=== PATIENT | male | born 1980 ===

== ENCOUNTER 2016-08-26 20:00 | Emergency (ER) | payer OTHER ==
[2016-08-26 20:27] VITALS: BMI 21.9
[2016-08-26 20:31] VITALS: RESP 18; TEMP 99.7
[2016-08-26] MEDS ORDERED: Oxycodone/Acetaminophen 5/325 mg Tab PO STA (20:48)
--- NOTE | 2016-08-26 21:06 | ED PDOC ---
Arrival/HPI - General Chief Complaint: Medical Clearance Time Seen by Provider: 08/26/16 20:31 Historian: Patient - History of Present Illness Narrative History of Present Illness (Text): 08/26/16 20:45 Pedro Aguilar is a 35 year old male who presents to the ED complaining of left- sided facial swelling for the past 3 days. Patient notes swelling has increased in size over the past few days. Patient denies any dental pain,fever, chills, shortness of breath, nausea, vomiting, neck pain, headache, dizziness, or any other complaints. Time/Duration: < week (days) Symptom Onset: Gradual Symptom Course: Worsening Activities at Onset: Rest, Light Context: Home Past Medical History - Provider Review Nursing Documentation Reviewed: Yes - Infectious Disease Hx of Infectious Diseases: None - Psychiatric Hx Substance Use: No - Anesthesia Hx Anesthesia: No Family/Social History - Physician Review Nursing Documentation Reviewed: Yes Family/Social History: No Known Family HX Smoking Status: Former Smoker Hx Alcohol Use: Yes Frequency of alcohol use: Socially Hx Substance Use: No Allergies/Home Meds Allergies/Adverse Reactions: Allergies Poultry Allergy (Verified 08/26/16 20:27) RASH Review of Systems - Physician Review All systems were reviewed & negative as marked: Yes - Review of Systems Constitutional: Normal. absent: Fevers Eyes: Normal ENT: Other (+left sided facial swelling) Respiratory: Normal. absent: SOB, Cough Cardiovascular: Normal. absent: Chest Pain Gastrointestinal: Normal. absent: Abdominal Pain, Diarrhea, Nausea, Vomiting Genitourinary Male: Normal. absent: Dysuria, Frequency, Hematuria, Urinary Output Changes Musculoskeletal: Normal. absent: Back Pain, Neck Pain Skin: Normal. absent: Rash Neurological: Normal. absent: Headache, Dizziness Endocrine: Normal Hemo/Lymphatic: Normal Psychiatric: Normal Physical Exam Vital Signs Reviewed: Yes Vital Signs Temp Pulse Resp BP Pulse Ox 08/26/16 20:30 99.7 F H 94 H 18 112/75 97 Temperature: Afebrile Blood Pressure: Normal Pulse: Regular Respiratory Rate: Normal Appearance: Positive for: Well-Appearing, Non-Toxic, Comfortable Pain Distress: None Mental Status: Positive for: Alert and Oriented X 3 - Systems Exam Head: Present: Normocephalic, Swelling (Left sided facial swelling) Pupils: Present: PERRL Extroacular Muscles: Present: EOMI Conjunctiva: Present: Normal Ears: Present: Normal, NORMAL TM, Normal Canal Mouth: Present: Moist Mucous Membranes Pharnyx: Present: Normal. No: ERYTHEMA, EXUDATE, TONSILS ENLARGED, Peritonsilar Swelling, Uvular Deviation, Muffled/Hoarse Voice, Strider, Soft Palate/Uvular Edema Neck: Present: Normal Range of Motion Respiratory/Chest: Present: Clear to Auscultation, Good Air Exchange. No: Respiratory Distress, Accessory Muscle Use Cardiovascular: Present: Regular Rate and Rhythm, Normal S1, S2. No: Murmurs Abdomen: Present: Normal Bowel Sounds. No: Tenderness, Distention, Peritoneal Signs Neurological: Present: GCS=15, CN II-XII Intact, Speech Normal Skin: Present: Warm, Dry, Normal Color. No: Rashes Psychiatric: Present: Alert, Oriented x 3, Normal Insight, Normal Concentration Medical Decision Making ED Course and Treatment: 08/26/16 20:45 Impression: 35 year old male complaining of left-sided facial swelling for 3 days. Differential Diagnosis include but are not limited to: dental abscess vs. facial swelling Plan: -- CT Maxillofacial -- Cleocin -- Percocet -- Reassess and disposition Progress Notes: 08/26/16 22:14 Reviewed radiology, CT Maxillofacial shows: Extensive facial swelling and cellulitis and presence of an odontogenic abscess in relation to the above clinician left-sided maxillary region periodontal disease. Concomitant inflammatory mucosal hypertrophy of the left maxillary sinus as well. The size of the abscess which also contains a small air pocket measures approximately 1.3 cm. 08/26/16 22:30 On re-evaluation, the patient feels better and is in no acute distress. I have discussed the results and plan with the patient, who expresses understanding. Patient in agreement with plan to discharged home. Patient is stable for discharge. Patient was instructed to follow up with physician/dentist/clinic in 1-2 days or return if symptoms worsen or new concerning symptoms arise. Re-evaluation Time: 22:32 Reassessment Condition: Re-examined, Improved - RAD Interpretation Narrative RAD Interpretations (Text): CT Maxillofacial shows: Bones/joints: No acute fracture. Soft tissues: There is marked soft tissue swelling and inflammation associated with the left aspect of the patient's face extending from the zygomatic region into the left cheek area. Small heterogeneous fluid pocket containing air pocket is also seen measuring 13 cm in close proximity to foci of periodontal disease associated with a left upper teeth in connection with the maxillary region. This likely represents an odontogenic abscess. Orbits: Unremarkable. Sinuses: Severe mucosal thickening of left maxillary sinus. The sinus is clear. No air-fluid levels. IMPRESSION: Extensive facial swelling and cellulitis and presence of an odontogenic abscess in relation to the above clinician left-sided maxillary region periodontal disease. Concomitant inflammatory mucosal hypertrophy of the left maxillary sinus as well. The size of the abscess which also contains a small air pocket measures approximately 1.3 cm. Radiology Orders: 08/26/16 20:48 MAXILLOFACIAL W/O CONTRAST [CT] Stat Video Editing Internship: Radiologist - Medication Orders Current Medication Orders: Discontinued Medications Clindamycin HCl (Cleocin) 150 mg PO STAT STA PRN Reason: Protocol Stop: 08/26/16 20:48 Last Admin: 08/26/16 20:55 Dose: 150 MG Oxycodone/Acetaminophen (Percocet 5/325 Mg Tab) 1 tab PO STAT STA Stop: 08/26/16 20:49 Last Admin: 08/26/16 20:56 Dose: 1 TAB - Scribe Statement The provider has reviewed the documentation as recorded by the Davide Whitfield Provider Attestation: All medical record entries made by the Davide were at my direction and personally dictated by me. I have reviewed the chart and agree that the record accurately reflects my personal performance of the history, physical exam, medical decision making, and the department course for this patient. I have also personally directed, reviewed, and agree with the discharge instructions and disposition. Disposition/Present on Arrival - Present on Arrival History of DVT/PE: No History of Uncontrolled Diabetes: No Urinary Catheter: No History of Decub. Ulcer: No History Surgical Site Infection Following: None - Disposition Diagnosis: Dental abscess Disposition: HOME/ ROUTINE Disposition Time: 22:32 Patient Problems: Current Active Problems Problem Status Diagnosed Dental abscess Acute Discharge Instructions (ExitCare): Dental Abscess (ED) Additional Instructions: follow up with your dentist in am Prescriptions: Clindamycin [Cleocin] 300 mg PO QID #28 cap Referrals: PCP,NO [Primary Care Provider] - Follow up with primary
[2016-08-26 22:38] VITALS: BP 116/78; PULSE 88; O2SAT 98
--- NOTE | 2016-08-27 08:33 | CT ---
PROCEDURE: CT MAXILLOFACIAL BONES WITHOUT CONTRAST HISTORY: facial abscess COMPARISON: None TECHNIQUE: Contiguous axial CT images of the maxillofacial bones were obtained. Coronal and sagittal reformats were generated. Radiation dose: Total exam DLP = 896.48 mGy-cm. FINDINGS: NASAL BONES: Unremarkable. ORBITS: Unremarkable. PARANASAL SINUSES/ MASTOIDS: Extensive chronic left maxillary sinusitis. Left maxillary ostium is occluded. Deviated nasal septum towards the left in association with bony nasal spur. Right tuyet bullosa. MAXILLA: Right there is apical lucency about 3 roots of the left 1st molar with cortical breakthrough on both the buccal and facial side. This is likely source of a left facial cellulitis with possible abscess. Evaluation is limited by the absence of intravenous contrast. There is a bubble of gas seen within thickened soft tissue along the fascial aspect of the left mandible indicating possible abscess. Evaluation is also grossly limited by beam hardening artifact arising from metallic dental fillings. There is extensive induration of the subcutaneous of the left face with skin thickening. This extends to the level of the mandible. This is seen inferior to the left orbit. MANDIBLE/ TEMPOROMANDIBULAR JOINTS: Unremarkable. SKULL BASE: Unremarkable. TEMPORAL BONES: Middle ears and mastoid grossly unremarkable. OTHER FINDINGS: None. IMPRESSION: Likely abscess along facial side of left maxilla due to apical abcesses of the left 1st molar (radicular cysts ). Evaluation limited as above. Abscess likely extends aligned the left side of the mandible as well. Extensive cellulitis. Extensive chronic left maxillary sinusitis. No evidence of postseptal infection left orbit. Preliminary interpretation of this examination was reported by [facility] at 9:29 p.m. on 08/26/2016. There is general concurrence of this report with the preliminary interpretation although this report describes limitation of the examination due to the absence of intravenous contrast as well as due to beam hardening artifact from metallic dental fillings. .
== END 2016-08-26 22:38 | disposition home or self-care (01) ==
LOC: ED 20:00
DX: K04.7 Periapical abscess without sinus (principal)

== ENCOUNTER 2016-12-29 14:07 | Emergency (ER) | payer MEDICAID, OTHER ==
[2016-12-29 14:08] VITALS: BMI 21.9
[2016-12-29 14:23] VITALS: TEMP 99.8
[2016-12-29 14:26] VITALS: RESP 18; O2SAT 98
--- NOTE | 2016-12-29 14:39 | ED PDOC ---
Arrival/HPI - General Chief Complaint: GI Problem Time Seen by Provider: 12/29/16 14:19 Historian: Patient - History of Present Illness Narrative History of Present Illness (Text): 12/29/16 14:30 A 36 year old male, whose past medical history includes acid reflux, presents to the emergency department complaining of worsening acid reflux and heart burn. Patient complains of difficulty swallowing and a burning sensation in his chest for the past hour. Patient reports his symptoms began after having lunch. He states he has experienced these symptoms multiple times before. Patient denies any fever, chills, nausea, vomiting, diarrhea, abdominal pain, shortness of breath, cough, headache, dizziness or any other complaints. Time/Duration: 1 hour Symptom Course: Unchanged Quality: Other Context: Home Past Medical History - Provider Review Nursing Documentation Reviewed: Yes - Infectious Disease Hx of Infectious Diseases: None - Gastrointestinal Hx Gastroesophageal Reflux: Yes - Psychiatric Hx Substance Use: No - Anesthesia Hx Anesthesia: No Family/Social History - Physician Review Nursing Documentation Reviewed: Yes Family/Social History: No Known Family HX Smoking Status: Former Smoker Hx Alcohol Use: Yes Hx Substance Use: No Allergies/Home Meds Allergies/Adverse Reactions: Allergies Poultry Allergy (Verified 12/29/16 14:23) RASH Review of Systems - Physician Review All systems were reviewed & negative as marked: Yes - Review of Systems Constitutional: absent: Fevers, Night Sweats ENT: Other (Difficulty swallowing) Respiratory: absent: SOB, Cough Cardiovascular: Chest Pain (Burning sensation) Gastrointestinal: absent: Abdominal Pain, Diarrhea, Nausea, Vomiting Neurological: absent: Headache, Dizziness Physical Exam Vital Signs Reviewed: Yes Vital Signs Temp Pulse Resp BP Pulse Ox 12/29/16 16:30 64 18 121/71 98 12/29/16 14:25 99.8 F H 68 18 122/72 98 12/29/16 14:18 99.8 F H 68 16 122/72 99 Temperature: Afebrile Blood Pressure: Normal Pulse: Regular Respiratory Rate: Normal Appearance: Positive for: Well-Appearing, Non-Toxic, Comfortable Pain Distress: None Mental Status: Positive for: Alert and Oriented X 3 - Systems Exam Head: Present: Atraumatic, Normocephalic Pupils: Present: PERRL Conjunctiva: Present: Normal Mouth: Present: Moist Mucous Membranes Pharnyx: Present: Normal. No: ERYTHEMA, EXUDATE, TONSILS ENLARGED, Peritonsilar Swelling, Uvular Deviation, Muffled/Hoarse Voice, Strider, Soft Palate/Uvular Edema Neck: Present: Normal Range of Motion Respiratory/Chest: Present: Clear to Auscultation, Good Air Exchange. No: Respiratory Distress, Accessory Muscle Use Cardiovascular: Present: Regular Rate and Rhythm, Normal S1, S2. No: Murmurs Abdomen: Present: Normal Bowel Sounds. No: Tenderness, Distention, Peritoneal Signs Neurological: Present: GCS=15, CN II-XII Intact, Speech Normal Skin: Present: Warm, Dry, Normal Color. No: Rashes Psychiatric: Present: Alert, Oriented x 3, Normal Insight, Normal Concentration Medical Decision Making ED Course and Treatment: 12/29/16 14:30 Impression: A 36 year old male with worsening acid reflux and heart burn. Patient notes difficulty swallowing and a burning sensation in chest. Differential: GI vs anxiety vs less likely ACS Plan: -- Chest xray -- Labs -- Pepcid and Zofran -- Reassess and disposition Progress Notes: Report Date : 12/29/2016 15:32:43 Procedure: Chest xray Dictator : Eddi Hong MD IMPRESSION: No active disease. 12/29/16 16:41 EKG shows NSR at 61 BPM with normal intervals, normal axis, no ST/T changes. Interpreted by me. 12/29/16 16:50 Patient feeling better s/p meds and able to swallow. EKG is normal with unremarkable labs - history is predominantly food and GI related -will d/c on zantac with recommending diet modification and recommend GI follow up. Ok for d /c. - Lab Interpretations Lab Results: 12/29/16 14:40 12/29/16 14:40 Lab Results 12/29/16 14:40: Sodium 141, Potassium 3.8, Chloride 100, Carbon Dioxide 30, Anion Gap 15, BUN 10, Creatinine 0.8, Est GFR ( Amer) > 60, Est GFR (Non- Af Amer) > 60, Random Glucose 104, Calcium 9.4, Magnesium 1.6 L, Total Bilirubin 1.1, AST 21, ALT 20, Alkaline Phosphatase 56, Lactate Dehydrogenase 330 L, Total Creatine Kinase 120, Troponin I < 0.01, Total Protein 7.4, Albumin 4.5, Globulin 2.9, Albumin/Globulin Ratio 1.6, Lipase 30 12/29/16 14:40: WBC 4.1 L, RBC 4.74, Hgb 15.1, Hct 41.4 L, MCV 87.3, MCH 31.9, MCHC 36.5, RDW 12.3, Plt Count 192, MPV 9.4, Gran % 62.5, Lymph % (Auto) 27.9, [facility] [facility] % (Auto) 1.7, Eos % (Auto) 7.4 H, Baso % (Auto) 0.5, Gran # 2.55, Lymph # 1.1 L, [facility] [place] [facility] # 0.1, Eos # 0.3, Baso # 0.02 I have reviewed the lab results: Yes - RAD Interpretation Radiology Orders: 12/29/16 14:38 CHEST TWO VIEWS (PA/LAT) [RAD] Stat - Medication Orders Current Medication Orders: Discontinued Medications Famotidine (Pepcid) 20 mg IVP STAT STA Stop: 12/29/16 14:40 Last Admin: 12/29/16 14:57 Dose: 20 mg Ondansetron HCl (Zofran Inj) 4 mg IVP STAT STA Stop: 12/29/16 14:40 Last Admin: 12/29/16 14:57 Dose: 4 mg - Scribe Statement The provider has reviewed the documentation as recorded by the Davide Sierra Provider Scribe Attestation: All medical record entries made by the Scribe were at my direction and personally dictated by me. I have reviewed the chart and agree that the record accurately reflects my personal performance of the history, physical exam, medical decision making, and the department course for this patient. I have also personally directed, reviewed, and agree with the discharge instructions and disposition. Disposition/Present on Arrival - Present on Arrival Any Indicators Present on Arrival: No History of DVT/PE: No History of Uncontrolled Diabetes: No Urinary Catheter: No History of Decub. Ulcer: No History Surgical Site Infection Following: None - Disposition Have Diagnosis and Disposition been Completed?: Yes Diagnosis: Atypical chest pain Disposition: HOME/ ROUTINE Disposition Time: 16:30 Patient Plan: Discharge Patient Problems: Current Active Problems Problem Status Onset Atypical chest pain Acute Condition: GOOD Discharge Instructions (ExitCare): Chest Pain (ED), Diet for Ulcers and Gastritis (ED), Gastroesophageal Reflux Disease (ED) Additional Instructions: Take the zantac as prescribed. Avoid spicy and greasy and fatty food. Follow up with gastroenterology for endoscopy (see [facility] referral [facility]). Return to the emergency department if any new concerning symptoms. Prescriptions: Ranitidine HCl [Zantac] 1 tab PO BID #30 tablet Referrals: [facility] [place] - Follow up with primary Forms: [employer] (Greenlandic)
[2016-12-29 14:55] LABS: ADD MANUAL DIFF? NO
[2016-12-29 14:58] LABS: BASO # 0.02 K/mm3 (0.0-2.0); BASO % 0.5 % (0.0-3.0); EOS # 0.3 (0.0-0.7); EOS % 7.4 % (1.5-5.0); GRAN # 2.55 (1.4-6.5); GRAN % 62.5 % (50.0-68.0); HEMATOCRIT 41.4 % (42.0-52.0); LYMPH # 1.1 (1.2-3.4); LYMPH % 27.9 % (22.0-35.0); MEAN CELL VOLUME 87.3 fL (80.0-105.0); MEAN CORPUSCULAR HEMOGLOBIN 31.9 pg (25.0-35.0); MEAN CORPUSCULAR HGB CONC 36.5 g/dl (31.0-37.0); MEAN PLATELET VOLUME 9.4 fl (7.0-11.0); MONO # 0.1 (0.1-0.6); MONO % 1.7 % (1.0-6.0); PLATELET COUNT 192 10^3/uL (120.0-450.0); RED CELL DISTRIBUTION WIDTH 12.3 % (11.5-14.5); WHITE BLOOD COUNT 4.1 10^3/ul (4.5-11.0)
[2016-12-29 15:12] LABS: ALB/GLOB RATIO 1.6 (1.1-1.8); ALKALINE PHOSPHATASE 56 U/L (38-133); ALT/SGPT 20 U/L (7-56); AST/SGOT 21 U/L (15-59); BILIRUBIN,TOTAL 1.1 mg/dL (0.2-1.3); BLOOD UREA NITROGEN 10 mg/dL (7-21); CALCIUM 9.4 mg/dL (8.4-10.5); CARBON DIOXIDE 30 mmol/L (21-33); CHLORIDE 100 mmol/L (98-107); GFR AFRICAN-AMERICAN > 60; GLUCOSE,RANDOM 104 mg/dL (70-110); LIPASE 30 U/L (23-300); MAGNESIUM 1.6 mg/dL (1.7-2.2); POTASSIUM 3.8 mmol/L (3.6-5.0); SODIUM 141 mmol/L (132-148); TOTAL PROTEIN 7.4 g/dL (5.8-8.3)
[2016-12-29 15:23] LABS: TROPONIN I < 0.01 ng/mL
--- NOTE | 2016-12-29 15:34 | RAD ---
HISTORY: chest pain COMPARISON: No prior. TECHNIQUE: Chest PA and lateral FINDINGS: LUNGS: No active pulmonary disease. PLEURA: No significant pleural effusion identified. No pneumothorax apparent. CARDIOVASCULAR: Normal. OSSEOUS STRUCTURES: No significant abnormalities. VISUALIZED UPPER ABDOMEN: Normal. OTHER FINDINGS: None. IMPRESSION: No active disease.
[2016-12-29 16:33] VITALS: BP 121/71; PULSE 64
--- NOTE | 2016-12-31 09:35 | CARD ---
APPROVED REPORT EKG Measurement Heart [id number] <Conclusion> Normal sinus rhythm with sinus arrhythmia LVH by jesenia, could be a normal variant
== END 2016-12-29 16:52 | disposition home or self-care (01) ==
LOC: ED 14:07
DX: R07.9 Chest pain, unspecified (principal)
CPT/HCPCS: 71020; 80053; 82550; 83615; 83690; 83735; 84484; 85025; 96374; 96375; 99284; J2405